=== PATIENT | male | born 1940 | race Caucasian/White ===

== ENCOUNTER 2021-05-31 08:38 | Inpatient (IN) | payer MEDICARE ==
[~2021-05-31] VITALS: Ht 182.9 cm; Wt 128.4 kg
[2021-05-31 12:31] LABS: HEMOGLOBIN 11.7 gm/dl (14.0-17.5); RED BLOOD COUNT 3.67 M/UL (4.20-5.50); WHITE BLOOD COUNT 9.2 K/UL (4.5-11.0)
[2021-05-31] MEDS ORDERED: TOPROL XL25 MG PO (13:19)
[2021-05-31] MEDS ORDERED: NORVASC10 MG PO (13:20)
[2021-06-01 03:22] LABS: HEMOGLOBIN 11.8 gm/dl (14.0-17.5); RED BLOOD COUNT 3.69 M/UL (4.20-5.50)
[2021-06-01 03:28] LABS: WHITE BLOOD COUNT 6.6 K/UL (4.5-11.0)
[2021-06-01 04:10] LABS: BUN/CREATININE RATIO 14 (0-10)
[2021-06-01] MEDS ORDERED: KLOR-CON M1010 MEQ PO (09:54)
[2021-06-01] MEDS ORDERED: SILVADENE CREAM20 GM TOP (09:57)
[2021-06-01] MEDS ORDERED: ELIQUIS5 MG PO (09:57)
[2021-06-01] MEDS ORDERED: PROSCAR5 MG PO (09:58)
[2021-06-01] MEDS ORDERED: LASIX40 MG PO (09:59)
[2021-06-01] MEDS ORDERED: ADVAIR 250-501 EACH INH (09:59)
[2021-06-01] MEDS ORDERED: LOPRESSOR50 MG PO (10:00)
[2021-06-01] MEDS ORDERED: ENTRESTO 24 MG1 EACH PO (10:01)
[2021-06-01] MEDS ORDERED: SPIRIVA RESPIMAT4 GM INH (10:02)
[2021-06-01] MEDS ORDERED: FLOMAX 0.4 MG0.4 MG PO (10:02)
[2021-06-01] MEDS ORDERED: ADULT LOW DOSE81 MG PO (10:06)
[2021-06-01] MEDS ORDERED: METHOTREXATE T2.5 MG PO (10:13)
[2021-06-01] MEDS ORDERED: FOLIC ACID 1 MG1 MG PO (10:14)
[2021-06-01] MEDS ORDERED: PRAVASTATIN SOD20 MG PO (13:18)
[2021-06-01] MEDS ORDERED: HYDROCHLOROTHIA25 MG PO (13:19)
[2021-06-01] MEDS ORDERED: ZYLOPRIM 100 M100 MG PO (13:20)
--- NOTE | 2021-06-01 13:37 | NUR ---
ATTEMPTED TO REMOVE PT STITCHES PER DR DAI ORDERS. SEVERAL OF THE STITCHES APPEAR TO BE COMPLETELY HEALED OVER. I WAS UNABLE TO GET TO THE KNOT OF THE SUTURE TO CUT STITCH WITHOUT CAUSING ADDITIONAL INJURY TO THE WOUND. PT ALSO STATES THAT IT CAUSES SEVERE PAIN WHEN I APPEMPT TO RETRIEVE STITCH. WOUND IS RED, IRRITATED AND OOZING WITH INFECTION. ARM WAS CLEANED WITH STERILE SALINE, COVERED WITH NON ADHESIVE AND WRAPPED IN KERLEX. I THEN CALLED DR DAI TO ASK IF HE WANTED GEN SURG CONSULT. HE STATED THAT HE WOULD TAKE A LOOK AT THE ARM AGAIN TOMORROW AND FOR ME TO JUST CLEAN AND COVER IT FOR NOW. WCTM.
--- NOTE | 2021-06-01 16:08 | NUR ---
DR SHANNON NOTIFIED OF PT REFUSAL TO WEAR NEW LIFEVEST THAT WAS BROUGHT TO HIS ROOM FROM SUPPLIER. DR DAI ALSO MADE AWARE. PT STATES THAT HE IS ALSO UNSURE IF HE EVEN WANTS TO HAVE THE DEFIBRILLATOR PLACED BUT WANTS TO REMAIN A FULL CODE DESPITE THE RISKS AND POTENTIAL OUTCOMES. PACER PADS ARE IN PLACE ON PT JUST IN CASE OF EMERGENCY AND CRASH CART IS OUTSIDE OF PT ROOM. SPOKE EXTENSIVELY WITH DAUGHTER, GWEN ON THE PHONE ABOUT PT CONDITION AND REFUSAL FOR INTERVENTIONS. 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 I ALSO INFORMED DAUGHTER OF THE ISSUE WITH BEING UNABLE TO REMOVE PT SUTURES IN ARM. SHE STATED THAT SHE WAS AWARE OF THEM BEING IMBEDDED AND INFECTION ON THE ARM AND UNDERSTOOD THAT FURTHER TX MAY BE REQUIRED TO REMOVE THE STITCHES AND CLEAN UP THE WOUND. PT STABLE AT THIS TIME. HAS WORKED WITH PT. PT UP TO CHAIR TALKING ON THE PHONE CURRENTLY. I GAVE DAUGHTER DIRECT NUMBER TO NURSES STATION TO CALL FOR UPDATES. JASWINDER.
[2021-06-02 03:05] LABS: HEMOGLOBIN 11.6 gm/dl (14.0-17.5); RED BLOOD COUNT 3.71 M/UL (4.20-5.50); WHITE BLOOD COUNT 5.5 K/UL (4.5-11.0)
[2021-06-02 03:36] LABS: BUN/CREATININE RATIO 15 (0-10)
--- NOTE | 2021-06-03 18:55 | NUR ---
BED SHOWING CLEAN AND READY ON TRACKING BOARD. ATTEMPTED TO CALL REPORT TO MERVAT MEMBRENO. HE SAYS ROOM NOT CLEAN BUT WILL RETURN CALL SOON.
--- NOTE | 2021-06-03 19:14 | NUR ---
REPORT GIVEN TO MERVAT MEMBRENO NAD. PT TRANSPORTED TO ROOM 5118.
--- NOTE | 2021-06-04 06:20 | NUR ---
0547 TELE MADE AWARE PT SAT DROPED, PT SNORING LOUDLY PT SATS COME UP WITH JAW THRUST. 0555 DR HARRIS NOTIFIED PT PLACED ON CPAP SATS DROPPED MD ORDERED [facility]. PT PLACED ON NRB JAW THRUST SATS COME UP. SECOND DOSE OF MEDICATION ORDERED BY DR NGO AND GIVEN. PT PLACED OB BIPAP AND SATS MAINTAINING 100%
[2021-06-04 07:00] LABS: HEMOGLOBIN 12.2 gm/dl (14.0-17.5); RED BLOOD COUNT 3.84 M/UL (4.20-5.50)
--- NOTE | 2021-06-04 15:13 | NUR ---
SPOKE WITH KAILEE LANG THIS AM ABOUT PATIENT NOT TAKING ANY MEDICATION BY MOUTH, ASKED TO GET HEART MEDICATION CHANGED TO IV IF POSSIBLE, TOLD HIM THAT HE HAD BEEN LETHARGIC MOST OF THE DAY AND REQUIRING BIPAP TO KEEP SAT IN 90S. ASKED ABOUT GETTING ABG ORDERED. NO NEW ORDERS WERE PUT IN. SPOKE TO DR DAI ABOUT PATIENT CONDITION WELL, NEW ORDERS PUT IN PER MD.
--- NOTE | 2021-06-04 15:23 | NUR ---
TELE CALLED ABOUT PATIENT DESAT. CHECKED PATIENT'S BIPAP PLACEMENT, TIGHTENED MASK. CALLED RT TO GET PATIENT A NEB TREATMENT. CHECKED FSBS BECAUSE PATIENT SWEATING BUT AFEBRILE, RESULT WAS 161. WCTM CLOSELY.
--- NOTE | 2021-06-04 16:28 | NUR ---
NOTIFIED DR DAI OF PATIENT CONDITION, HE REQUESTED TRANSFER TO PCU.
--- NOTE | 2021-06-04 16:30 | NUR ---
CALLING REPORT TO PCU ON THE PATIENT WHEN HIS SAT DROPPED TO 65, RAN IN TO THE ROOM AND PATIENT WAS DYSPNEIC AND HYPOXIC ON 100% BIPAP, CALLED MARBLE CLEANER AT 1634 AND PUT CRASH CART MONITOR ON PATIENT IMMEDIATELY. PATIENT HAD WEAK THREADY PULSE, DIAPHORESIS, FSBS WAS STABLE AT 161, PATIENT BEGAN TO DESAT FURTHER SO BAGGED PATIENT. CPR BOARD PLACED UNDER PATIENT WITH CONTINUOUS MONITORING. DR DAI AT BEDSIDE, EXTRA IV ACCESS OBTAINED. PATIENT INTUBATED AT BEDSIDE, REPORT GIVEN TO ICU NURSE AT BEDSIDE, PATIENT TRANSFERRED TO ICU. FAMILY NOTIFIED AND CODE SHEET COMPLETED.
--- NOTE | 2021-06-04 18:41 | NUR ---
OSCILLOGRAPH TECHNICIAN WAS CALLED ON MEDSURG 5. ONCE I ARRIVED PATIENT WAS HOOKED UP TO THE CRASH CART BEING MONITORED WITH TWO MDS AT BEDSIDE. PATIENT WAS UNRESPONSIVE WITH A HEART RATE IN THE 40'S WITH OXYGEN IN THE 60'S. PATIENT WAS INTUBATED ON THE FLOOR AND WAS BROUGHT DOWN TO ICU TO 2120.
[2021-06-05 05:09] LABS: HEMOGLOBIN 12.2 gm/dl (14.0-17.5); RED BLOOD COUNT 3.84 M/UL (4.20-5.50)
[2021-06-05 05:17] LABS: WHITE BLOOD COUNT 13.4 K/UL (4.5-11.0)
[2021-06-06 05:50] LABS: BUN/CREATININE RATIO 13 (0-10)
[2021-06-07 07:17] LABS: BUN/CREATININE RATIO 22 (0-10)
[2021-06-07 11:24] LABS: HEMOGLOBIN 12.6 gm/dl (14.0-17.5); RED BLOOD COUNT 3.97 M/UL (4.20-5.50); WHITE BLOOD COUNT 10.4 K/UL (4.5-11.0)
[2021-06-08 05:52] LABS: BUN/CREATININE RATIO 26 (0-10)
[2021-06-09 05:33] LABS: HEMOGLOBIN 12.4 gm/dl (14.0-17.5); RED BLOOD COUNT 4.02 M/UL (4.20-5.50)
[2021-06-09 06:18] LABS: BUN/CREATININE RATIO 24 (0-10)
[2021-06-10 02:56] LABS: HEMOGLOBIN 11.9 gm/dl (14.0-17.5); RED BLOOD COUNT 3.81 M/UL (4.20-5.50); WHITE BLOOD COUNT 9.3 K/UL (4.5-11.0)
[2021-06-10 03:10] LABS: BUN/CREATININE RATIO 24 (0-10)
[2021-06-12 09:22] LABS: WHITE BLOOD COUNT 8.9 K/UL (4.5-11.0)
[2021-06-12 09:27] LABS: HEMOGLOBIN 14.5 gm/dl (14.0-17.5); RED BLOOD COUNT 4.57 M/UL (4.20-5.50)
[2021-06-12 09:54] LABS: BUN/CREATININE RATIO 25 (0-10)
--- NOTE | 2021-06-14 05:09 | NUR ---
TELEMETRY ALERTED ME THAT THE PT'S O2 WAS LOW. PT WAS PLACED ON HIS BIPAP AND RESPIRATORY WAS CALLED. MD WAS ALERTED OF LOW TIDAL VOLUME AND CAME TO ASSESS PT. ABG ORDERED AND PT INTUBATED BY DR. MENDEZ AT 0345.
[2021-06-14 06:41] LABS: HEMOGLOBIN 12.7 gm/dl (14.0-17.5)
[2021-06-14 06:42] LABS: RED BLOOD COUNT 4.01 M/UL (4.20-5.50); WHITE BLOOD COUNT 11.8 K/UL (4.5-11.0)
[2021-06-14 07:14] LABS: BUN/CREATININE RATIO 21 (0-10)
[2021-06-15 04:59] LABS: RED BLOOD COUNT 4.52 M/UL (4.20-5.50); WHITE BLOOD COUNT 12.2 K/UL (4.5-11.0)
[2021-06-15 05:13] LABS: BUN/CREATININE RATIO 18 (0-10)
[2021-06-16 06:43] LABS: HEMOGLOBIN 13.3 gm/dl (14.0-17.5); RED BLOOD COUNT 4.3 M/UL (4.20-5.50); WHITE BLOOD COUNT 12.3 K/UL (4.5-11.0)
[2021-06-16 07:04] LABS: BUN/CREATININE RATIO 18 (0-10)
[2021-06-17 05:18] LABS: HEMOGLOBIN 12.3 gm/dl (14.0-17.5); RED BLOOD COUNT 3.97 M/UL (4.20-5.50)
[2021-06-17 05:26] LABS: WHITE BLOOD COUNT 6.9 K/UL (4.5-11.0)
[2021-06-17 05:57] LABS: BUN/CREATININE RATIO 24 (0-10)
--- NOTE | 2021-06-21 20:54 | NUR ---
ELECTRICAL WORKER CALLED, PATIENT LETHARGIC, DIFFICULT TO AROUSE, JAI IN THE 30'S, O2 SAT IN THE LOW 70'S.
--- NOTE | 2021-06-21 21:02 | NUR ---
JUAN JOSÉ ADKINS INITIATED AND CALLED OVERHEAD. SEE CODE RECORD
--- NOTE | 2021-06-21 21:05 | NUR ---
NOTIFIED PATIENTS DAUGHTER NICK OF PATIENT CONDITION.
[2021-06-21 21:37] LABS: RED BLOOD COUNT 4.51 M/UL (4.20-5.50); WHITE BLOOD COUNT 11.4 K/UL (4.5-11.0)
[2021-06-23 05:42] LABS: HEMOGLOBIN 13.7 gm/dl (14.0-17.5); RED BLOOD COUNT 4.44 M/UL (4.20-5.50)
[2021-06-23 05:46] LABS: WHITE BLOOD COUNT 15.2 K/UL (4.5-11.0)
[2021-06-24 05:16] LABS: HEMOGLOBIN 12.2 gm/dl (14.0-17.5); WHITE BLOOD COUNT 15.1 K/UL (4.5-11.0)
[2021-06-24 05:22] LABS: RED BLOOD COUNT 3.98 M/UL (4.20-5.50)
[2021-06-24 05:40] LABS: BUN/CREATININE RATIO 21 (0-10)
== END 2021-06-24 11:15 | disposition expired | DRG 286 ==
LOC: PROG CARE 10:51 → CCU 10:51 → M/S 06-03 19:33 → CCU 06-04 16:50 → PROG CARE 06-09 11:10 → CCU 06-14 03:17 → M/S 06-18 20:13 → CCU 06-21 21:30
PROVIDERS: Internal Medicine; Internal Medicine Critical Care Medicine; Internal Medicine Infectious Disease; Internal Medicine Pulmonary Disease; Physician Assistant; ADMIT Internal Medicine
PROC: 0BH18EZ Insertion of Endotracheal Airway into Trachea, Via Natural or Artificial Opening Endoscopic (ICD-10-PCS; 2021-05-31)
PROC: 3E04329 Introduction of Other Anti-infective into Central Vein, Percutaneous Approach (ICD-10-PCS; 2021-05-31)
PROC: 8E0ZXY6 Isolation (ICD-10-PCS; 2021-05-31)
PROC: 4A023N7 Measurement of Cardiac Sampling and Pressure, Left Heart, Percutaneous Approach (ICD-10-PCS; 2021-06-02)
PROC: B24BZZZ Ultrasonography of Heart with Aorta (ICD-10-PCS; 2021-06-02)
PROC: B2111ZZ Fluoroscopy of Multiple Coronary Arteries using Low Osmolar Contrast (ICD-10-PCS; 2021-06-02)
PROC: 3E043XZ Introduction of Vasopressor into Central Vein, Percutaneous Approach (ICD-10-PCS; 2021-06-04)
PROC: 5A09357 Assistance with Respiratory Ventilation, Less than 24 Consecutive Hours, Continuous Positive Airway Pressure (ICD-10-PCS; 2021-06-04)
PROC: 5A1945Z Respiratory Ventilation, 24-96 Consecutive Hours (ICD-10-PCS; 2021-06-04)
PROC: 3E0333Z Introduction of Anti-inflammatory into Peripheral Vein, Percutaneous Approach (ICD-10-PCS; 2021-06-04)
PROC: 0DH63UZ Insertion of Feeding Device into Stomach, Percutaneous Approach (ICD-10-PCS; 2021-06-05)
PROC: 3E0G76Z Introduction of Nutritional Substance into Upper GI, Via Natural or Artificial Opening (ICD-10-PCS; 2021-06-05)
PROC: 5A09357 Assistance with Respiratory Ventilation, Less than 24 Consecutive Hours, Continuous Positive Airway Pressure (ICD-10-PCS; 2021-06-07)
PROC: 5A09357 Assistance with Respiratory Ventilation, Less than 24 Consecutive Hours, Continuous Positive Airway Pressure (ICD-10-PCS; 2021-06-12)
PROC: 5A1945Z Respiratory Ventilation, 24-96 Consecutive Hours (ICD-10-PCS; 2021-06-14)
PROC: 0BH18EZ Insertion of Endotracheal Airway into Trachea, Via Natural or Artificial Opening Endoscopic (ICD-10-PCS; 2021-06-14)
PROC: 5A09357 Assistance with Respiratory Ventilation, Less than 24 Consecutive Hours, Continuous Positive Airway Pressure (ICD-10-PCS; 2021-06-15)
PROC: 5A1945Z Respiratory Ventilation, 24-96 Consecutive Hours (ICD-10-PCS; 2021-06-21)
PROC: 0BH17EZ Insertion of Endotracheal Airway into Trachea, Via Natural or Artificial Opening (ICD-10-PCS; 2021-06-21)
PROC: B24BZZZ Ultrasonography of Heart with Aorta (ICD-10-PCS; 2021-06-22)
PROC: 05HM33Z Insertion of Infusion Device into Right Internal Jugular Vein, Percutaneous Approach (ICD-10-PCS; 2021-06-22)
PROC: 5A12012 Performance of Cardiac Output, Single, Manual (ICD-10-PCS; principal; 2021-06-24)
PROC: 5A09357 Assistance with Respiratory Ventilation, Less than 24 Consecutive Hours, Continuous Positive Airway Pressure (ICD-10-PCS; 2021-06-24)
DX: I47.2 Ventricular tachycardia (principal); U07.1 COVID-19; I46.9 Cardiac arrest, cause unspecified; J96.21 Acute and chronic respiratory failure with hypoxia; I50.23 Acute on chronic systolic (congestive) heart failure; J96.22 Acute and chronic respiratory failure with hypercapnia; G92.8 Other toxic encephalopathy; A41.9 Sepsis, unspecified organism; R65.21 Severe sepsis with septic shock; J12.82 Pneumonia due to coronavirus disease 2019; J69.0 Pneumonitis due to inhalation of food and vomit; N17.9 Acute kidney failure, unspecified; I13.0 Hypertensive heart and chronic kidney disease with heart failure and stage 1 through stage 4 chronic kidney disease, or unspecified chronic kidney disease; Z66 Do not resuscitate; Z51.5 Encounter for palliative care; R57.0 Cardiogenic shock; E66.9 Obesity, unspecified; D53.9 Nutritional anemia, unspecified; M10.9 Gout, unspecified; J44.9 Chronic obstructive pulmonary disease, unspecified; E78.5 Hyperlipidemia, unspecified; N18.30 Chronic kidney disease, stage 3 unspecified; I48.0 Paroxysmal atrial fibrillation; R73.9 Hyperglycemia, unspecified; I27.20 Pulmonary hypertension, unspecified; I65.29 Occlusion and stenosis of unspecified carotid artery; L89.896 Pressure-induced deep tissue damage of other site; I25.10 Atherosclerotic heart disease of native coronary artery without angina pectoris; E87.6 Hypokalemia; I25.5 Ischemic cardiomyopathy; R53.81 Other malaise; Z79.01 Long term (current) use of anticoagulants; L89.152 Pressure ulcer of sacral region, stage 2; Z95.5 Presence of coronary angioplasty implant and graft; Z98.890 Other specified postprocedural states; Z95.810 Presence of automatic (implantable) cardiac defibrillator; Z79.82 Long term (current) use of aspirin; Z79.899 Other long term (current) drug therapy; Z79.4 Long term (current) use of insulin; Z87.891 Personal history of nicotine dependence; Z82.49 Family history of ischemic heart disease and other diseases of the circulatory system; Z80.52 Family history of malignant neoplasm of bladder; Z99.81 Dependence on supplemental oxygen; I25.2 Old myocardial infarction; Z68.38 Body mass index [BMI] 38.0-38.9, adult
CPT/HCPCS: ECHO; 31500; 36415; 36600; 70450; 70496; 70498; 71045; 80048; 80053; 80202; 81001; 82550; 82553; 82803; 82962; 83036; 83735; 83874; 83880; 84132; 84439; 84443; 84484; 85025; 85610; 86140; 87040; 87070; 87077; 87081; 87186; 87205; 92526; 92610; 92950; 93005; 93306; 94002; 94003; 94640; 94660; 94664; 94760; 97110; 97110-GP-CQ; 97116-GP-CQ; 97162; 97164; 97167; 97530; 97530-GP-CQ; 99152; C1769; C1894; C9113; J0171; J0461; J0690; J0692; J0696; J1100; J1335; J1644; J1650; J1940; J2060; J2250; J2270; J2704; J3010; J3370; J3480; J3486; J7030; J7040; J7050; J7070; Q9967; U0002